=== PATIENT | female | born 1955 | race Caucasian/White ===

== ENCOUNTER 2022-02-22 12:59 | Emergency (ER) | payer MEDICARE, OTHER ==
[~2022-02-22] VITALS: Ht 160 cm; Wt 76.2 kg
[~2022-02-22 12:59] MED LIST: ALTACE10 MG PO; BUPROPION XL300 MG PO; DHEA50 MG PO; LEVOTHYROXINE200 MCG PO; LIOTHYRONINE SO5 MCG PO; MIRAPEX0.25 MG PO; PHENTERMINE HCL30 MG PO; POTASSIUM CHLO10 MEQ PO; SERTRALINE HCL100 MG PO; TRIAMTERENE-HC1 EAC3; VITAMIN B COMP1 EACH PO; VITAMIN D31000 UNIT PO; ZIPSOR25 MG PO
== END 2022-02-22 16:26 | disposition home or self-care (01) ==
LOC: ED 12:59
DX: R19.7 Diarrhea, unspecified (principal); R10.9 Unspecified abdominal pain; F17.200 Nicotine dependence, unspecified, uncomplicated; Z79.899 Other long term (current) drug therapy
CPT/HCPCS: 36415; 80053; 81001; 83690; 85025; 99284